=== PATIENT | male | born 1995 | race African-American/Black ===

== ENCOUNTER 2021-03-27 13:53 | Emergency (ER) | payer OTHER, SELFPAY ==
--- NOTE | ~2021-03-27 | XR_ITS ---
EXAMINATION: XR lumbar spine 2-3V, XR sacrum coccyx min 2V CLINICAL INFORMATION: Reason for Exam LOW BACK PAIN COMPARISON: None TECHNIQUE: Frontal lateral and coned-down L5-S1, sacrum frontal and lateral FINDINGS: Lumbar vertebrae identified maintaining proper height and alignments. Intervertebral disc spaces are preserved. Paravertebral soft tissues unremarkable. Sacrum and adjacent SI joints are normal. There is cylindrical shape 2 cm object projecting over the pelvis on lateral view probably outside the patient, not visualized on the AP view. Otherwise paravertebral soft tissues unremarkable. No presacral soft tissue swelling. XR/XR sacrum coccyx min 2V IMPRESSION: No significant osseous changes to explain patient's pain symptoms. 2 cm linear cylindrical object projecting over the pelvis anterior to the sacrum on lateral view probably outside the patient as not seen on the AP view.
--- NOTE | ~2021-03-27 | XR_ITS ---
EXAMINATION: XR lumbar spine 2-3V, XR sacrum coccyx min 2V CLINICAL INFORMATION: Reason for Exam LOW BACK PAIN COMPARISON: None TECHNIQUE: Frontal lateral and coned-down L5-S1, sacrum frontal and lateral FINDINGS: Lumbar vertebrae identified maintaining proper height and alignments. Intervertebral disc spaces are preserved. Paravertebral soft tissues unremarkable. Sacrum and adjacent SI joints are normal. There is cylindrical shape 2 cm object projecting over the pelvis on lateral view probably outside the patient, not visualized on the AP view. Otherwise paravertebral soft tissues unremarkable. No presacral soft tissue swelling. XR/XR lumbar spine 2-3V IMPRESSION: No significant osseous changes to explain patient's pain symptoms. 2 cm linear cylindrical object projecting over the pelvis anterior to the sacrum on lateral view probably outside the patient as not seen on the AP view.
[2021-03-27 14:03] VITALS: BP 144/88; PULSE 88; O2SAT 96
[2021-03-27 14:33] VITALS: BP 149/90; PULSE 77; RESP 18; TEMP 36.8; O2SAT 98; BMI 25.4
[2021-03-27] MEDS: Ketorolac Tromethamine 15 MG/ML VIAL 30 MG IM (16:05)
[2021-03-27] MEDS: oxyCODONE HCl Immed Release 5 MG TABLET PO ×2 (16:06→18:31)
[2021-03-27] MEDS: LORazepam 1 MG TABLET PO (16:06)
--- NOTE | 2021-03-27 16:11 | ED_ITS ---
HPI - Back Pain/Injury General Chief Complaint: Back Pain/Injury Stated Complaint: lower back pain Time Seen by Provider: 03/27/21 15:37 History of Present Illness HPI Narrative: Patient complains of low back pain that developed yesterday that does not radiate and is worse with bending and movement, there is no fever no chills no numbness weakness or tingling no radiation of pain no abdominal pain no chest pain no IV drug use or immune compromise Related Data Previous Rx's Medication Instructions Recorded albuterol sulfate 2.5 mg INHALATION Q4H PRN #75 ml 03/27/21 albuterol sulfate 90 mcg/actuation 2 puff INHALATION Q4-6H PRN #8.5 g 03/27/21 aerosol inhaler ibuprofen 600 mg tablet 600 mg PO Q6H PRN #20 tab 03/27/21 oxycodone 5 mg tablet 5 mg PO BID PRN #10 tab 03/28/21 amoxicillin 500 mg capsule 500 mg PO BID 10 Days #20 cap 04/06/21 Allergies Allergy/AdvReac Type Severity Reaction Status Date / Time banana Allergy Anaphylaxis Verified 03/27/21 14:35 Review of Systems Review of Systems: Positive for back pain Negatives are no fever no chills no dizziness no weakness no headache no neck pain no chest pain no shortness of breath no abdominal pain no nausea vomiting or diarrhea and no dysuria no changes to bowel or bladder no incontinence no skin rash Yes all other systems are reviewed and are negative [facility] Past Medical History Source: nursing notes reviewed Medical History No known health problems Social History Social History (Updated 04/06/21 @ 07:34 by Negin Baum DO) Patient Tobacco Use Status: Never used Tobacco Advance Directives: No Physical Exam Vital Signs: Vital Signs: Last Vital Signs Temp 98.2 F 03/27/21 14:33 Pulse 77 03/27/21 14:33 Resp 18 03/27/21 16:43 BP 149/90 H 03/27/21 14:33 Pulse Ox 98 03/27/21 14:33 Body Mass Index 25.4 General appearance no acute distress Head is normocephalic atraumatic Neck is supple Chest clear to auscultation bilateral Abdomen soft nontender The back add lower lumbar paraspinal tenderness, there is no bony tenderness, the skin is normal, there is no CVA tenderness, pain is easily reproduced with movement Extremities full range of motion x4 Neuro no focal motor or sensory deficits Course Course Course Narrative: Well-appearing patient with musculoskeletal back pain, pain was relieved with analgesics and he felt very improved and was discharged with no changes to bowel or bladder no fever and no neurologic deficits Discharge Plan Discharge Clinical Impression: Back pain Patient Disposition: Home, Self-Care Instructions: Acute Low Back Pain (ED) Additional Instructions: You can use Motrin and if needed oxycodone for pain Follow with primary doctor Return any time if worse Prescriptions: New albuterol sulfate 90 mcg/actuation HFA aerosol inhaler 2 puff inhalation Q4-6H PRN (Reason: shortness of breath or wheezing) Qty: 8.5 RF: 0 albuterol sulfate 2.5 mg /3 mL (0.083 %) solution for nebulization 2.5 mg inhalation Q4H PRN (Reason: shortness of breath or wheezing) Qty: 75 RF: 0 ibuprofen 600 mg tablet 600 mg PO Q6H PRN (Reason: pain) Qty: 20 RF: 0 oxycodone 5 mg tablet 5 mg PO BID PRN (Reason: pain) Qty: 10 RF: 0 No Action amoxicillin 500 mg capsule 500 mg PO BID 10 Days Qty: 20 RF: 0 Interventions: ED Discharge Assessment Last Done: 03/27/21 18:41 Discharge Date/Time: 03/27/21 18:42
[2021-03-27 16:42] VITALS: RESP 18
[2021-03-27 16:43] VITALS: RESP 18
--- NOTE | 2021-03-27 18:26 | PC.NURSE ---
This Rn called patient susan knox for a ride,
== END 2021-03-27 18:42 | disposition home or self-care (01) ==
PROVIDERS: Emergency Provider Emergency Medicine
DX: M54.5 Low back pain (principal)
CPT/HCPCS: 72100; 72220; 96372; 99283; 99284; J1885

== ENCOUNTER 2021-04-06 06:35 | Emergency (ER) | payer OTHER, SELFPAY ==
--- NOTE | 2021-04-06 07:08 | ED.URI ---
HPI - URI/Sore Throat General Chief Complaint: General Medical Stated Complaint: Cough/Sore throat Time Seen by Provider: 04/06/21 07:06 Source: patient Mode of arrival: ambulatory Limitations: no limitations History of Present Illness MD elicited complaint: cough and sore throat Onset (ago): day(s) (4) Consistency: intermittent Severity: mild Description of mucous: clear Able to tolerate fluids by mouth: Yes Exacerbating factors: swallowing Relieving factors: nothing Associated symptoms: sore throat and cough Treatments prior to arrival: none Related Data Previous Rx's Medication Instructions Recorded albuterol sulfate 2.5 mg INHALATION Q4H PRN #75 ml 03/27/21 albuterol sulfate 90 mcg/actuation 2 puff INHALATION Q4-6H PRN #8.5 g 03/27/21 aerosol inhaler ibuprofen 600 mg tablet 600 mg PO Q6H PRN #20 tab 03/27/21 oxycodone 5 mg tablet 5 mg PO BID PRN #10 tab 03/28/21 amoxicillin 500 mg capsule 500 mg PO BID 10 Days #20 cap 04/06/21 Allergies Allergy/AdvReac Type Severity Reaction Status Date / Time banana Allergy Anaphylaxis Verified 03/27/21 14:35 Review of Systems Review of Systems: Constitutional : no Fever, noChills, no fatigue, no Malaise ENT/Mouth : positive sore throat, positive runny nose Eyes: No Discharge Cardiovascular : No Chest Pain, No SOB Respiratory :pos Cough, No Sputum Gastrointestinal : No Nausea, No Vomiting, No Diarrhea Genitourinary : No Dysuria, No Urinary Frequency Musculoskeletal : no Myalgia Skin : No rash Neuro : No Headache PMFSH Past Medical History Attestation statement: The following information was validated with the patient. Medical History No known health problems Social History Social History (Updated 04/06/21 @ 07:34 by Negin Baum DO) Patient Tobacco Use Status: Never used Tobacco Advance Directives: No Physical Exam Vital Signs: Vital Signs: Last Vital Signs Temp 98 F 04/06/21 07:28 Pulse 66 04/06/21 07:28 Resp 17 04/06/21 07:28 BP 133/66 04/06/21 07:28 Pulse Ox 98 04/06/21 07:28 Body Mass Index 27.2 Appearance: Alert. Oriented X3. No acute distress. Eyes: Pupils equal, round and reactive to light. ENT: Pharynx mild erythema no exudates or sig swelling uvula midline Neck: Normal inspection. Neck supple. CVS: Normal heart rate and rhythm. Pulses normal. Respiratory: No respiratory distress. Breath sounds normal. Abdomen: Soft and nontender. Skin: Skin warm and dry. Normal skin color. Normal skin turgor. Extremities: No lower extremity edema. No calf ttp Neuro: Oriented X 3. No motor deficit. No sensory deficit. Course Course Course Narrative: + strep MDM - URI/Sore Throat MDM Narrative Medical decision making narrative: 26 yo male vaccinated here with cough and sore throat. At this time will need strep and COVID swab, could also be allergic rhinitis. Not toxic and well appearing, no concern for [employer] or deeper space infection. Lab Data Labs: Lab Results 04/06/21 04/06/21 Range/Units 07:37 07:37 COVID-19 (HEATHER) Negative (Negative) COVID-19 Clin Com See Note S. pyogenes GrpA DRISS Positive A (Negative) Discharge Plan Discharge Clinical Impression: Strep pharyngitis Patient Disposition: Home, Self-Care Instructions: Strep Throat (ED) Additional Instructions: return to ED for any worsening symptoms or concerns Prescriptions: New amoxicillin 500 mg capsule 500 mg PO BID 10 Days Qty: 20 RF: 0 No Action albuterol sulfate 90 mcg/actuation HFA aerosol inhaler 2 puff inhalation Q4-6H PRN (Reason: shortness of breath or wheezing) Qty: 8.5 RF: 0 albuterol sulfate 2.5 mg /3 mL (0.083 %) solution for nebulization 2.5 mg inhalation Q4H PRN (Reason: shortness of breath or wheezing) Qty: 75 RF: 0 ibuprofen 600 mg tablet 600 mg PO Q6H PRN (Reason: pain) Qty: 20 RF: 0 oxycodone 5 mg tablet 5 mg PO BID PRN (Reason: pain) Qty: 10 RF: 0 Stand Alone Forms: Work/School Release Interventions: ED Discharge Assessment Last Done: 04/06/21 08:39 Discharge Date/Time: 04/06/21 08:46
[2021-04-06 07:28] VITALS: BP 133/66; PULSE 66; RESP 17; TEMP 36.6; O2SAT 98; BMI 27.2
[2021-04-06 07:47] LABS: IDNOW Serial# 9DD0AD1C; Strep A Nucleic Acid Positive (Negative)
[2021-04-06 07:58] LABS: COVID-19 Test Negative (Negative)
== END 2021-04-06 08:46 | disposition home or self-care (01) ==
PROVIDERS: Emergency Provider Emergency Medicine
DX: J02.0 Streptococcal pharyngitis (principal); Z20.822 Contact with and (suspected) exposure to COVID-19
CPT/HCPCS: 36415; 87635; 87651; 99283

== ENCOUNTER 2021-05-27 10:00 | Emergency (ER) | payer OTHER, SELFPAY ==
[2021-05-27 10:19] VITALS: BP 146/87; BP 161/76; PULSE 72; PULSE 77; RESP 18; TEMP 36.8; O2SAT 100; O2SAT 99; BMI 27.2
[2021-05-27] MEDS: Nicotine 14 MG PATCH.TD24 TRANSDERMA (11:00)
[2021-05-27 11:12] LABS: Appearance Urine CLEAR; Color Urine YELLOW; Glucose Urine UA NEG (NEG); Leukocyte Esterase Urine NEG (NEG); Nitrite Urine NEG (NEG); UACC Culture Trigger NO; Urine Blood 1+ (NEG); Urine Ketones NEG (NEG); Urine Protein 2+ MG/DL (NEG-TRACE)
[2021-05-27 11:20] LABS: RBC Urine 0-2 /HPF (0); Squamous Epithelial Cell Urine TRACE /LPF; WBC Urine 0-2 /HPF (0-4)
--- NOTE | 2021-05-27 11:21 | ED.PSYCH ---
HPI - Psych General Chief Complaint: Psychiatric Symptoms Stated Complaint: crisis Time Seen by Provider: 05/27/21 16:36 Source: patient Mode of arrival: ambulatory Limitations: no limitations History of Present Illness HPI Narrative: Patient presents to ED for evaluation. Patient was brought in and due to him being found with alcohol in his pocket and he admitted to using cocaine at work. EMS was informed by employ the patient states he was suicidal, but patient denies being suicidal or homicidal. Patient states he has no plan to kill himself. Patient does admits to substance abuse. Patient denies any physical complaints, auditory/visual hallucinations, or any suicidal attempt. Related Data Previous Rx's Medication Instructions Recorded albuterol sulfate 2.5 mg INHALATION Q4H PRN #75 ml 03/27/21 albuterol sulfate 90 mcg/actuation 2 puff INHALATION Q4-6H PRN #8.5 g 03/27/21 aerosol inhaler ibuprofen 600 mg tablet 600 mg PO Q6H PRN #20 tab 03/27/21 oxycodone 5 mg tablet 5 mg PO BID PRN #10 tab 03/28/21 amoxicillin 500 mg capsule 500 mg PO BID 10 Days #20 cap 04/06/21 Allergies Allergy/AdvReac Type Severity Reaction Status Date / Time banana Allergy Anaphylaxis Verified 03/27/21 14:35 celery AdvReac Hives Verified 05/27/21 10:49 Review of Systems Review of Systems: Yes all other systems are reviewed and are negative Constitutional: Constitutional: Reports as per HPI and Reports no additional constitutional complaints Eyes: Eyes: Reports as per HPI and Reports no additional eye complaints ENT: Reports system reviewed and no additional complaints, except as documented and Reports as per HPI Cardiovascular: Cardiovascular: Reports as per HPI and Reports no additional cardiovascular complaints Respiratory: Respiratory: Reports as per HPI and Reports no additional respiratory complaints Gastrointestinal: Gastrointestinal: Reports as per HPI and Reports no additional gastrointestinal complaints Genitourinary: Genitourinary: Reports no additional male genitourinary complaints and Reports as per HPI Musculoskeletal: Musculoskeletal: Reports no additional musculoskeletal complaints and Reports as per HPI Neurologic: Reports system reviewed and no additional complaints, except as documented and Reports as per HPI Psychiatric: Psychiatric: Reports no additional psychiatric complaints and Reports as per HPI Endocrine: Endocrine: Reports no additional endocrine complaints and Reports as per HPI [facility] Past Medical History Medical History No known health problems Social History Social History (Updated 04/06/21 @ 07:34 by Negin Baum DO) Patient Tobacco Use Status: Never used Tobacco Advance Directives: No Advance Directives Information Provided: No Physical Exam Vital Signs: Vital Signs: Last Vital Signs Temp 98.2 F 05/27/21 10:19 Pulse 72 05/27/21 10:19 Resp 18 05/27/21 10:19 BP 146/87 H 05/27/21 10:19 Pulse Ox 99 05/27/21 10:19 Body Mass Index 27.2 Const: General: cooperative, healthy appearing, comfortable, no acute distress, well developed, alert, awake and Physically active Orientation/consciousness: patient oriented x3 HENMT: Head: Yes normal to inspection, Yes No palpable skull fracture present, Yes normocephalic, Yes atraumatic and No abrasion Eyes: General: appearance normal, both eyes and all related structures Neck: Neck: Yes normal visual inspection, Yes full ROM, Yes no lymphadenopathy, Yes no meningeal signs, Yes trachea midline, Yes supple and No tender Chest: Chest palpation & inspection: normal inspection of the chest and normal palpation of entire chest wall Resp: Effort & Inspection: normal respiratory effort and able to speak in complete sentences Auscultation: clear to auscultation bilaterally Cardio: Jugular venous distension: no JVD Heart sounds: S1 normal heart sound present and S2 normal heart sound present GI: Inspection: Yes normal to inspection and No abdominal wall ecchymosis Palpation (GI): Soft to palpation, not firm, nontender, no guarding and not rigid : General: No CVA tenderness and Yes no CVA tenderness Back/Spine/Pelvis: Back: no CVA tenderness, No CVA tenderness and No back tenderness Skin: General skin exam: no rashes or lesions noted and elasticity normal Neuro: General: patient oriented x3, gait normal, no meningeal signs and CN's II-XI intact bilaterally Cranial nerves: Yes CN's II-XII intact bilaterally Extrem: General: Yes normal to inspection and Yes full ROM Psych: Appearance: grossly normal, well kempt and not disheveled Course Course Course Narrative: Patient have medical evaluation and evaluated by [facility]. Reevaluation(s) Reevaluation #1: Patient labs are baseline except LFTs. LTE'S slightly more elevated. Patient not having abdominal pain. Patient has elevated LFTs due to history of alcoholism. Patient to be evaluated by [facility] Time: 12:00 Reevaluation #2: Patient cleared by [facility] consultant CORRY for discharge. Patient is not suicidal homicidal. Patient seen by detox counselor and was given detox programs contact information for follow-up. Mother feels comfortable receiving patient and she will watch patient. Patient states he would not hurt himself. Time: 15:49 MDM - Psych MDM Narrative Medical decision making narrative: Mild depression. Substance disorder Lab Data Result diagrams: 05/27/21 13:37 05/27/21 13:37 Labs: Lab Results 05/27/21 05/27/21 05/27/21 Range/Units 11:02 11:03 11:03 WBC (4.8-10.8) X10*3/uL RBC (4.60-5.80) X10*6/uL Hgb (14.0-18.0) g/dl Hct (42-52) % MCV (80-98) fL MCH (27.0-33.0) pg MCHC (31.0-36.0) g/dl RDW (11.0-16.0) % Plt Count (160-400) X10*3/uL MPV (9.4-12.4) fL Immature Gran % (Auto) (0.0-0.4) % Neut % (Auto) (45-73) % Lymph % (Auto) (20-40) % Evangeline % (Auto) (2-11) % Eos % (Auto) (0-4) % Baso % (Auto) (0-2) % Lymph # (Auto) (1.2-4.9) X10*3/uL Evangeline # (Auto) (0.1-1.2) X10*3/uL Eos # (Auto) (0.0-0.4) X10*3/uL Baso # (Auto) (0.0-0.2) X10*3/uL Abs Immat Gran (auto) (0.00-0.03) X10*3/uL Absolute Neuts (auto) (2.0-8.3) X10*3/uL Absolute Nucleated RBC (0.0-0.012) X10*3/uL Nucleated RBC % (auto) (0.0-0.2) /100WBC Sodium (135-145) mmol/L Potassium (3.3-5.1) mmol/L Chloride (96-108) mmol/L Carbon Dioxide (22-29) mmol/L Anion Gap (12-20) BUN (9-16) mg/dL Creatinine (0.5-1.4) mg/dL Estim Creat Clear Calc Estimated GFR Random Glucose (60-115) mg/dL Calcium (8.4-10.2) mg/dL Magnesium (1.6-2.6) mg/dL Total Bilirubin (0.0-1.0) mg/dL AST (5-37) U/L ALT (0-40) U/L Alkaline Phosphatase (39-117) U/L Total Protein (6.5-8.0) g/dL Albumin (3.5-5.0) g/dL Urine Color YELLOW Urine Appearance CLEAR Urine pH 6.0 (5.0-8.0) Ur Specific [place] 1.010 (1.005-1.025) Urine Protein 2+ H (NEG-TRACE) MG/DL Urine Glucose (UA) NEG (NEG) MG/DL Urine Ketones NEG (NEG) MG/DL Urine Blood 1+ H (NEG) Urine Nitrite NEG (NEG) Ur Leukocyte Esterase NEG (NEG) Urine RBC 0-2 (0) /HPF Urine WBC 0-2 (0-4) /HPF Ur Squamous Epith Cells TRACE /LPF Urine Bacteria NONE /LPF Urine Opiates Screen Not Detected (Not Detect) Urine Fentanyl Screen Not Detected (Not Detect) Ur Barbiturates Screen Not Detected (Not Detect) Ur Phencyclidine Scrn Not Detected (Not Detect) Ur Amphetamines Screen Not Detected (Not Detect) U Benzodiazepines Scrn Not Detected (Not Detect) Urine Cocaine Screen POSITIVE H (Not Detect) U Marijuana (THC) Screen POSITIVE H (Not Detect) Ethyl Alcohol mg/dL COVID-19 (HEATHER) Negative (Negative) COVID-19 Clin Com See Note 05/27/21 05/27/21 05/27/21 Range/Units 13:37 13:37 13:37 WBC 4.8 (4.8-10.8) X10*3/uL RBC 4.47 L (4.60-5.80) X10*6/uL Hgb 11.4 L (14.0-18.0) g/dl Hct 36.8 L (42-52) % MCV 82.3 (80-98) fL MCH 25.5 L (27.0-33.0) pg MCHC 31.0 (31.0-36.0) g/dl RDW 12.7 (11.0-16.0) % Plt Count 190 (160-400) X10*3/uL MPV 10.9 (9.4-12.4) fL Immature Gran % (Auto) 0.2 (0.0-0.4) % Neut % (Auto) 23.9 L (45-73) % Lymph % (Auto) 42.0 H (20-40) % Evangeline % (Auto) 13.4 H (2-11) % Eos % (Auto) 19.0 H (0-4) % Baso % (Auto) 1.5 (0-2) % Lymph # (Auto) 2.0 (1.2-4.9) X10*3/uL Evangeline # (Auto) 0.6 (0.1-1.2) X10*3/uL Eos # (Auto) 0.9 H (0.0-0.4) X10*3/uL Baso # (Auto) 0.1 (0.0-0.2) X10*3/uL Abs Immat Gran (auto) 0.01 (0.00-0.03) X10*3/uL Absolute Neuts (auto) 1.2 L (2.0-8.3) X10*3/uL Absolute Nucleated RBC 0.000 (0.0-0.012) X10*3/uL Nucleated RBC % (auto) 0.0 (0.0-0.2) /100WBC Sodium 141 (135-145) mmol/L Potassium 4.1 (3.3-5.1) mmol/L Chloride 103 (96-108) mmol/L Carbon Dioxide 29 (22-29) mmol/L Anion Gap 13 (12-20) BUN 6 L (9-16) mg/dL Creatinine 1.14 (0.5-1.4) mg/dL Estim Creat Clear Calc 128.0 Estimated GFR > 60 Random Glucose 90 (60-115) mg/dL Calcium 9.4 (8.4-10.2) mg/dL Magnesium 1.8 (1.6-2.6) mg/dL Total Bilirubin 0.9 (0.0-1.0) mg/dL AST 481 H (5-37) U/L ALT 440 H (0-40) U/L Alkaline Phosphatase 159 H (39-117) U/L Total Protein 10.2 H (6.5-8.0) g/dL Albumin 3.9 (3.5-5.0) g/dL Urine Color Urine Appearance Urine pH (5.0-8.0) Ur Specific [place]way (1.005-1.025) Urine Protein (NEG-TRACE) MG/DL Urine Glucose (UA) (NEG) MG/DL Urine Ketones (NEG) MG/DL Urine Blood (NEG) Urine Nitrite (NEG) Ur Leukocyte Esterase (NEG) Urine RBC (0) /HPF Urine WBC (0-4) /HPF Ur Squamous Epith Cells /LPF Urine Bacteria /LPF Urine Opiates Screen (Not Detect) Urine Fentanyl Screen (Not Detect) Ur Barbiturates Screen (Not Detect) Ur Phencyclidine Scrn (Not Detect) Ur Amphetamines Screen (Not Detect) U Benzodiazepines Scrn (Not Detect) Urine Cocaine Screen (Not Detect) U Marijuana (THC) Screen (Not Detect) Ethyl Alcohol 125 mg/dL COVID-19 (HETAHER) (Negative) COVID-19 Clin Com Discharge Plan Discharge Clinical Impression: Depression, Substance use disorder Instructions: Depression (ED), Polysubstance Abuse (ED) Additional Instructions: Please follow-up with detox programs the you were given contact information for. Follow-up with primary care provider. Return to ED immediately for any suicidal/homicidal ideation, auditory/visual hallucinations, any physical complaints, or any other concerning symptoms. Prescriptions: No Action albuterol sulfate 90 mcg/actuation HFA aerosol inhaler 2 puff inhalation Q4-6H PRN (Reason: shortness of breath or wheezing) Qty: 8.5 RF: 0 albuterol sulfate 2.5 mg /3 mL (0.083 %) solution for nebulization 2.5 mg inhalation Q4H PRN (Reason: shortness of breath or wheezing) Qty: 75 RF: 0 ibuprofen 600 mg tablet 600 mg PO Q6H PRN (Reason: pain) Qty: 20 RF: 0 oxycodone 5 mg tablet 5 mg PO BID PRN (Reason: pain) Qty: 10 RF: 0 amoxicillin 500 mg capsule 500 mg PO BID 10 Days Qty: 20 RF: 0 Print Language: Spanish
[2021-05-27 11:25] LABS: COVID-19 Test Negative (Negative)
[2021-05-27 11:28] LABS: Amphetamine Screen Urine Not Detected (Not Detect); Barbiturates, Urine Not Detected (Not Detect); Benzodiazepines Screen Urine Not Detected (Not Detect); Cannabinoid Screen Urine POSITIVE (Not Detect); Cocaine Screen Urine POSITIVE (Not Detect); Fentanyl, urine Not Detected (Not Detect); Opiate Screen Urine Not Detected (Not Detect); Phencyclidine Screen Urine Not Detected (Not Detect)
--- NOTE | 2021-05-27 13:34 | MHC.CARE ---
CARE Team called [facility] [facility] to obtain collateral information. [employer] reports Pt was assessed in February 2021 secondary to break up with his girlfriend and suicidal ideation. Initial disposition was found [facility] during a follow up Pt was discharged home. There is reported diagnosis of MDD and alcohol use disorder.
[2021-05-27 13:43] LABS: MANUAL DIFF FLAG NO
[2021-05-27 13:46] LABS: Basophils Absolute Auto 0.1 X10*3/uL (0.0-0.2); Basophils Percent Auto 1.5 % (0-2); Eosinophils Absolute Auto 0.9 X10*3/uL (0.0-0.4); Hematocrit 36.8 % (42-52); Hemoglobin 11.4 g/dl (14.0-18.0); Imm Gran Abs Auto 0.01 X10*3/uL (0.00-0.03); Imm Gran Pct Auto 0.2 % (0.0-0.4); Mean Corpuscular Hemoglobin 25.5 pg (27.0-33.0); Mean Corpuscular Volume 82.3 fL (80-98); Mean Platelet Volume 10.9 fL (9.4-12.4); Monocytes Absolute Auto 0.6 X10*3/uL (0.1-1.2); Monocytes Percent Auto 13.4 % (2-11); Neutrophils Absolute Auto 1.2 X10*3/uL (2.0-8.3); Neutrophils Percent Auto 23.9 % (45-73); Platelet Count 190 X10*3/uL (160-400); Red Blood Count 4.47 X10*6/uL (4.60-5.80); Red Cell Distribution Width 12.7 % (11.0-16.0); White Blood Count 4.8 X10*3/uL (4.8-10.8)
[2021-05-27 14:08] LABS: Ethanol 125 mg/dL
[2021-05-27 14:12] LABS: Alanine Aminotransferase 440 U/L (0-40); Albumin Level 3.9 g/dL (3.5-5.0); Alkaline Phosphatase 159 U/L (39-117); Anion Gap 13 (12-20); Aspartate Amino Transferase 481 U/L (5-37); Bilirubin Total 0.9 mg/dL (0.0-1.0); Blood Urea Nitrogen 6 mg/dL (9-16); Calcium 9.4 mg/dL (8.4-10.2); Carbon Dioxide 29 mmol/L (22-29); Chloride 103 mmol/L (96-108); Estimated Glomerular Filt Rate > 60; Glucose Random 90 mg/dL (60-115); Magnesium 1.8 mg/dL (1.6-2.6); Potassium 4.1 mmol/L (3.3-5.1); Sodium 141 mmol/L (135-145); Total Protein 10.2 g/dL (6.5-8.0)
[2021-05-27] MEDS: LORazepam 1 MG TABLET 2 MG PO (17:57)
--- NOTE | 2021-05-27 18:09 | MHC.RECOVSUP ---
? Reason for consult:Recovery support o?? Current location [facility]? o?? Identified substance use concern ?Alcohol/cocaine ?? Support ? Intervention: o?? Community resources provided o?? Harm reduction discussion ? Plan o?? Follow up tomorrow? o?? Patient awaiting crisis evaluation o?? Patient to follow up with [facility] [place] after discharge ? Additional information: Met with Pt. He states that he has been using alcohol and cocaine about two weeks.States that doesn't want to go to detox but interested in going to [facility].Will provide information to Pt about program..?
== END 2021-05-27 19:07 | disposition home or self-care (01) ==
PROVIDERS: Physician Assistant; Emergency Provider Emergency Medicine; PCP Internal Medicine
DX: F10.10 Alcohol abuse, uncomplicated (principal); Y90.6 Blood alcohol level of 120-199 mg/100 ml; F33.1 Major depressive disorder, recurrent, moderate; F12.10 Cannabis abuse, uncomplicated; F14.10 Cocaine abuse, uncomplicated; Z20.822 Contact with and (suspected) exposure to COVID-19; Z79.899 Other long term (current) drug therapy
CPT/HCPCS: 36415; 80053; 80307; 81001; 82077; 83735; 85025; 87635; 99284

== ENCOUNTER 2021-06-09 04:01 | Emergency (ER) | payer OTHER, SELFPAY ==
[2021-06-09 04:14] VITALS: BP 122/64; PULSE 78; RESP 18; TEMP 36.6; O2SAT 98; BMI 26.2
[2021-06-09 05:14] LABS: Basophils Absolute Auto 0.1 X10*3/uL (0.0-0.2); Basophils Percent Auto 0.9 % (0-2); Eosinophils Absolute Auto 1.7 X10*3/uL (0.0-0.4); Eosinophils Percent Auto 24.7 % (0-4); Hematocrit 32.9 % (42.0-52.0); Hemoglobin 10.1 g/dl (14.0-18.0); Imm Gran Abs Auto 0.02 X10*3/uL (0.00-0.03); Imm Gran Pct Auto 0.3 % (0.0-0.4); Lymphocytes Absolute Auto 2.6 X10*3/uL (1.2-4.9); Lymphocytes Percent Auto 38.5 % (20-40); MANUAL DIFF FLAG NO; Mean Corpuscular HGB Conc 30.7 g/dl (31.0-36.0); Mean Corpuscular Hemoglobin 25.6 pg (27.0-33.0); Mean Corpuscular Volume 83.5 fL (80.0-98.0); Mean Platelet Volume 10.2 fL (9.4-12.4); Monocytes Absolute Auto 0.9 X10*3/uL (0.1-1.2); Monocytes Percent Auto 13.9 % (2-11); Neutrophils Absolute Auto 1.46 x10*3/uL (2.0-8.3); Neutrophils Percent Auto 21.7 % (45-73); Platelet Count 179 X10*3/uL (160-400); Red Blood Count 3.94 X10*6/uL (4.60-5.80); Red Cell Distribution Width 12.5 % (11.0-16.0); White Blood Count 6.8 X10*3/uL (4.8-10.8)
[2021-06-09 05:29] LABS: COVID-19 Test Negative (Negative)
--- NOTE | 2021-06-09 05:51 | ED.GENADULT ---
HPI - General Adult General Chief complaint: Nausea/Vomiting/Diarrhea Stated complaint: low body temp, nausea Time Seen by Provider: 06/09/21 05:46 Source: patient Mode of arrival: ambulatory Limitations: no limitations History of Present Illness HPI narrative: Patient comes emergency room complaining of having chills. According to the patient for the last 5 years, when he drinks alcohol he feels chills. Patient states that this time it chills but prior to arriving, after drinking alcohol. Patient denies nausea vomiting diarrhea. Related Data Previous Rx's Medication Instructions Recorded albuterol sulfate 2.5 mg (3 mL) INHALATION Q4H PRN 03/27/21 #75 ml albuterol sulfate 90 mcg/actuation 2 puff INHALATION Q4-6H PRN #8.5 g 03/27/21 aerosol inhaler ibuprofen 600 mg tablet 600 mg PO Q6H PRN #20 tab 03/27/21 oxycodone 5 mg tablet 5 mg PO BID PRN #10 tab 03/28/21 amoxicillin 500 mg capsule 500 mg PO BID 10 Days #20 cap 04/06/21 Allergies Allergy/AdvReac Type Severity Reaction Status Date / Time banana Allergy Anaphylaxis Verified 03/27/21 14:35 celery AdvReac Hives Verified 05/27/21 10:49 Review of Systems Review of Systems: Constitutional : No Weight loss, No Fever, complaining of Chills, No Night Sweats, No Fatigue, No Malaise ENT/Mouth : No Hearing loss, No Ear Pain, No Nasal Congestion, No Sinus Pain, No Hoarseness, No sore throat, No Rhinorrhea, No Swallowing Difficulty Eyes: No Eye Pain, No Swelling, No Redness, No Foreign Body, No Discharge, No Vision Changes Cardiovascular : No Chest Pain, No SOB, No Dyspnea on Exertion, No Orthopnea, No Edema, No Palpitations Respiratory : No Cough, No Sputum, No Wheezing, No Smoke Exposure, No Dyspnea Gastrointestinal : No Nausea, No Vomiting, No Diarrhea, No Constipation, No abdominal Pain, No Hematochezia, No Melena Genitourinary : no irregular bleeding, No Dysuria, No Urinary Frequency, No Hematuria, No Urinary Incontinence, No Urgency, No Flank Pain, No Urinary Flow Changes, No Hesitancy Musculoskeletal : No joint pain, No Myalgias, No Joint Swelling Skin : No Skin Lesions, No rash Neuro : No Weakness, No Numbness, No Paresthesias, No Loss of Consciousness, No Dizziness, No Headache Psych : No Anxiety/Panic, No Depression, No SI/HI/AH/VH, No Social Issues, Heme/Lymph: No Bruising, No Bleeding,No Lymphadenopathy Endocrine : No Polyuria, No Polydipsia, No Temperature Intolerance [facility] Past Medical History Medical History No known health problems Social History Social History (Updated 04/06/21 @ 07:34 by Negin Baum DO) Patient Tobacco Use Status: Never used Tobacco Advance Directives: No Advance Directives Information Provided: Yes Physical Exam Vital Signs: Vital Signs: Last Vital Signs Temp 97.8 F 06/09/21 04:14 Pulse 76 06/09/21 06:00 Resp 16 06/09/21 06:00 BP 114/61 06/09/21 06:00 Pulse Ox 98 06/09/21 06:00 Body Mass Index 26.2 Const: Other: Appearance: Alert. Oriented X3. No acute distress. Eyes: Pupils equal, round and reactive to light. ENT: Pharynx normal. Neck: Normal inspection. Neck supple. No lymph nodes noted. No crepitus CVS: Normal heart rate and rhythm. Pulses normal. Normal S1 and S2 Respiratory: No respiratory distress. Breath sounds normal. No Wheezing. No rales Abdomen: Soft and nontender. No rigidity. No distention. good BS x4 Skin: Skin warm and dry. Normal skin color. Normal skin turgor. Extremities: No lower extremity edema. No Lacerations. No Rash Neuro: Oriented X 3. No motor deficit. No sensory deficit. Moving all extermities. No slurred speech. Course Course Course Narrative: Patient's LFTs are chronically elevated, no new findings. Patient has an elevated lipase of 85. Patient has no abdominal pain nausea or vomiting. Pancreatitis is not suspected at this time. I discussed with the patient that whenever he has chills, especially after drinking, he should check his blood sugar,. Patient instructed to follow-up with GI. I discussed and urged the patient to stop drinking. 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 Patient agrees to follow-up with gastroenterology. Medical Decision Making Lab Data Result diagrams: 06/09/21 05:04 06/09/21 05:04 Labs: Lab Results 06/09/21 06/09/21 06/09/21 Range/Units 05:04 05:04 05:04 WBC 6.8 (4.8-10.8) X10*3/uL RBC 3.94 L (4.60-5.80) X10*6/uL Hgb 10.1 L (14.0-18.0) g/dl Hct 32.9 L (42.0-52.0) % MCV 83.5 (80.0-98.0) fL MCH 25.6 L (27.0-33.0) pg MCHC 30.7 L (31.0-36.0) g/dl RDW 12.5 (11.0-16.0) % Plt Count 179 (160-400) X10*3/uL MPV 10.2 (9.4-12.4) fL Immature Gran % (Auto) 0.3 (0.0-0.4) % Neut % (Auto) 21.7 L (45-73) % Lymph % (Auto) 38.5 (20-40) % Hudson % (Auto) 13.9 H (2-11) % Eos % (Auto) 24.7 H (0-4) % Baso % (Auto) 0.9 (0-2) % Lymph # (Auto) 2.6 (1.2-4.9) X10*3/uL Hudson # (Auto) 0.9 (0.1-1.2) X10*3/uL Eos # (Auto) 1.7 H (0.0-0.4) X10*3/uL Baso # (Auto) 0.1 (0.0-0.2) X10*3/uL Abs Immat Gran (auto) 0.02 (0.00-0.03) X10*3/uL Absolute Neuts (auto) 1.46 L (2.0-8.3) x10*3/uL Absolute Nucleated RBC 0.000 (0.0-0.012) X10*3/uL Nucleated RBC % (auto) 0.0 (0.0-0.2) /100WBC Sodium 140 (135-145) mmol/L Potassium 3.7 (3.3-5.1) mmol/L Chloride 105 (96-108) mmol/L Carbon Dioxide 27 (22-29) mmol/L Anion Gap 12 (12-20) BUN 13 D (9-16) mg/dL Creatinine 1.10 (0.5-1.4) mg/dL Estim Creat Clear Calc 132.7 Estimated GFR > 60 Random Glucose 114 (60-115) mg/dL Calcium 8.8 D (8.4-10.2) mg/dL Total Bilirubin 0.6 (0.0-1.0) mg/dL Direct Bilirubin 0.4 (0.0-0.5) mg/dL AST 396 H (5-37) U/L ALT 349 H (0-40) U/L Alkaline Phosphatase 136 H (39-117) U/L Total Protein 8.9 H (6.5-8.0) g/dL Albumin 3.6 (3.5-5.0) g/dL Lipase 85 H (8-78) U/L COVID-19 (HEATHER) Negative (Negative) COVID-19 Clin Com See Note 06/09/21 Range/Units 05:04 WBC (4.8-10.8) X10*3/uL RBC (4.60-5.80) X10*6/uL Hgb (14.0-18.0) g/dl Hct (42.0-52.0) % MCV (80.0-98.0) fL MCH (27.0-33.0) pg MCHC (31.0-36.0) g/dl RDW (11.0-16.0) % Plt Count (160-400) X10*3/uL MPV (9.4-12.4) fL Immature Gran % (Auto) (0.0-0.4) % Neut % (Auto) (45-73) % Lymph % (Auto) (20-40) % Hudson % (Auto) (2-11) % Eos % (Auto) (0-4) % Baso % (Auto) (0-2) % Lymph # (Auto) (1.2-4.9) X10*3/uL Hudson # (Auto) (0.1-1.2) X10*3/uL Eos # (Auto) (0.0-0.4) X10*3/uL Baso # (Auto) (0.0-0.2) X10*3/uL Abs Immat Gran (auto) (0.00-0.03) X10*3/uL Absolute Neuts (auto) (2.0-8.3) x10*3/uL Absolute Nucleated RBC (0.0-0.012) X10*3/uL Nucleated RBC % (auto) (0.0-0.2) /100WBC Sodium (135-145) mmol/L Potassium (3.3-5.1) mmol/L Chloride (96-108) mmol/L Carbon Dioxide (22-29) mmol/L Anion Gap (12-20) BUN (9-16) mg/dL Creatinine (0.5-1.4) mg/dL Estim Creat Clear Calc Estimated GFR Random Glucose (60-115) mg/dL Calcium (8.4-10.2) mg/dL Total Bilirubin Cancelled (0.0-1.0) mg/dL Direct Bilirubin Cancelled (0.0-0.5) mg/dL AST Cancelled (5-37) U/L ALT Cancelled (0-40) U/L Alkaline Phosphatase Cancelled (39-117) U/L Total Protein Cancelled (6.5-8.0) g/dL Albumin Cancelled (3.5-5.0) g/dL Lipase Cancelled (8-78) U/L COVID-19 (HEATHER) (Negative) COVID-19 Clin Com Discharge Plan Discharge Clinical Impression: Chills, Alcohol abuse Patient Disposition: Home, Self-Care Instructions: Abuse of Alcohol (ED) Additional Instructions: Please follow-up with your primary care physician tomorrow. If you have any worsening or new symptoms, please return to the emergency room or call 911 Prescriptions: No Action albuterol sulfate 90 mcg/actuation HFA aerosol inhaler 2 puff inhalation Q4-6H PRN (Reason: shortness of breath or wheezing) Qty: 8.5 RF: 0 albuterol sulfate 2.5 mg /3 mL (0.083 %) solution for nebulization 2.5 mg inhalation Q4H PRN (Reason: shortness of breath or wheezing) Qty: 75 RF: 0 ibuprofen 600 mg tablet 600 mg PO Q6H PRN (Reason: pain) Qty: 20 RF: 0 oxycodone 5 mg tablet 5 mg PO BID PRN (Reason: pain) Qty: 10 RF: 0 amoxicillin 500 mg capsule 500 mg PO BID 10 Days Qty: 20 RF: 0 Referrals: Emerson Bond MD [Physician] - 2 days Stand Alone Forms: Work/School Release
[2021-06-09 05:55] LABS: Alanine Aminotransferase 349 U/L (0-40); Albumin Level 3.6 g/dL (3.5-5.0); Alkaline Phosphatase 136 U/L (39-117); Anion Gap 12 (12-20); Aspartate Amino Transferase 396 U/L (5-37); Bilirubin Direct 0.4 mg/dL (0.0-0.5); Bilirubin Total 0.6 mg/dL (0.0-1.0); Blood Urea Nitrogen 13 mg/dL (9-16); Calcium 8.8 mg/dL (8.4-10.2); Carbon Dioxide 27 mmol/L (22-29); Chloride 105 mmol/L (96-108); Creatinine Clr Calc Pharmacy 132.7; Estimated Glomerular Filt Rate > 60; Glucose Random 114 mg/dL (60-115); Lipase 85 U/L (8-78); Potassium 3.7 mmol/L (3.3-5.1); Sodium 140 mmol/L (135-145); Total Protein 8.9 g/dL (6.5-8.0)
[2021-06-09 06:00] VITALS: BP 114/61; PULSE 76; RESP 16; O2SAT 98
--- NOTE | 2021-06-09 06:37 | PC.NURSE ---
pt vitals are stable, labs reviewed, pt sleeping on and off.
== END 2021-06-09 06:49 | disposition home or self-care (01) ==
PROVIDERS: Emergency Provider Emergency Medicine; PCP Internal Medicine
DX: R68.83 Chills (without fever) (principal); F10.10 Alcohol abuse, uncomplicated; Z20.822 Contact with and (suspected) exposure to COVID-19
CPT/HCPCS: 36415; 80053; 82248; 83690; 85025; 87635; 99283; 99284